=== PATIENT | female | born 1960 | race Caucasian/White ===

== ENCOUNTER 2017-07-02 21:51 | Emergency (ER) | payer BC ==
[~2017-07-02] VITALS: Ht 162.6 cm; Wt 84.0 kg
[~2017-07-02 21:51] MED LIST: AMLODIPINE BESY10 MG PO; BENADRYL25 MG PO; CLONAZEPAM0.5 MG PO; PREDNISONE20 MG PO; RANITIDINE HCL300 M1 PO; SERTRALINE HCL100 MG PO
[2017-07-02 22:57] LABS: HEMATOCRIT 42.6 % (36.0-46.0); HEMOGLOBIN 14.2 G/DL (11.9-15.5); MCH 28.3 PG (29.0-34.0); MCHC 33.3 G/DL (30.0-36.0); MCV 84.9 FL (83-99); PLATELET COUNT 220 K/uL (156-360); RBC DIS.WIDTH-CV 13.2 % (11.8-14.6); RBC DIS.WIDTH-SD 41.3 % (39-53); RED BLOOD COUNT 5.02 M/uL (3.80-5.20); WHITE BLOOD COUNT 10.3 K/uL (4.1-10.2)
[2017-07-02 23:09] LABS: ALBUMIN 4.4 g/dL (3.2-4.8); CHLORIDE 102 mEq/L (99-109); POTASSIUM 3.6 mEq/L (3.7-5.4); SODIUM 140 mEq/L (136-147)
[2017-07-02 23:11] LABS: GLUCOSE 153 mg/dL (70-99)
[2017-07-02 23:12] LABS: TOTAL PROTEIN 7.2 g/dL (6.4-8.3)
[2017-07-02 23:13] LABS: TOTAL BILIRUBIN 0.3 mg/dL (0.0-1.0)
[2017-07-02 23:15] LABS: ALKALINE PHOSPHATASE 100 IU/L (3-129); CREATININE 0.8 mg/dL (0.6-1.3); GFR ESTIMATE (CALCULATED) > 59 mL/min/
[2017-07-02 23:16] LABS: UREA NITROGEN (BUN) 20 mg/dL (9-23)
[2017-07-02 23:17] LABS: AST (GOT) 14 IU/L (2-34)
[2017-07-02 23:18] LABS: ALT (GPT) 16 IU/L (3-49)
[2017-07-02 23:19] LABS: LIPASE 18 U/L (1.0-51.0)
[2017-07-03 00:14] LABS: APPEARANCE CLEAR ((CLEAR)); BILIRUBIN NEGATIVE; BLOOD NEGATIVE; COLOR YELLOW ((YELLOW)); GLUCOSE (STRIP) NEGATIVE; KETONES 5; LEUKOCYTES TRACE; NITRITE NEGATIVE; PROTEIN (STRIP) 30; SPECIFIC GRAVITY 1.025 (1.000-1.030); UROBILINOGEN 0.2 MG/DL (0.2-1.0)
[2017-07-03 00:21] LABS: BACTERIA NONE SEEN /HPF; EPITHELIAL CELLS RARE /HPF; MUCUS TRACE /LPF; RED BLOOD CELLS 0-5 /HPF (0-5); UCUL ADDED? NO; WHITE BLOOD CELLS 0-5 /HPF (0-5)
[2017-07-03] MEDS ORDERED: MECLIZINE HCL25 MG PO (01:05)
[2017-07-03] MEDS ORDERED: SUDAFED 12-HOU120 MG PO (01:05)
[2017-07-03 01:35] VITALS: BP 132/72
== END 2017-07-03 01:35 | disposition home or self-care (01) ==
LOC: EME 21:51
PROVIDERS: Emergency Medicine
DX: H66.93 Otitis media, unspecified, bilateral (principal); J01.90 Acute sinusitis, unspecified; I10 Essential (primary) hypertension; J45.909 Unspecified asthma, uncomplicated; F41.9 Anxiety disorder, unspecified; Z87.891 Personal history of nicotine dependence; Z88.5 Allergy status to narcotic agent; Z88.1 Allergy status to other antibiotic agents
CPT/HCPCS: 70450; 80053; 81003; 83690; 85027; 93005; 99281; 99285; J0780; J1200; J2405; J7030